=== PATIENT | female | born 1960 | race Caucasian/White ===

== ENCOUNTER → 2016-08-21 | Outpatient (CLI) | payer OTHER | END | disposition home or self-care (01) | LOC: CFH 09:53 | PROVIDERS: ATTEND Genetic Counselor, MS | DX: Z12.31 Encounter for screening mammogram for malignant neoplasm of breast (principal) | CPT/HCPCS: G0202 ==

== ENCOUNTER → 2017-02-10 | Outpatient (CLI) | payer OTHER ==
[~2017-02-10] MED LIST: CLOB15OI TP; FLUO15CR8 TP; GABA-826 PO; GABA300C10 PO; HYDR25TA11 PO; HYDR25TA6 PO; ZOLP5TAB6 PO
[2017-02-10 11:37] LABS: HEMATOCRIT 43.7 % (34.6-47.8); HEMOGLOBIN 15.1 g/dL (11.7-16.4); WHITE BLOOD COUNT 7.5 x10^3/uL (3.4-10)
[2017-02-10 11:43] LABS: BLOOD UREA NITROGEN 11 mg/dL (7-18)
[2017-02-10 11:46] LABS: ASPARTATE AMINO TRANSFERASE 18 U/L (15-37)
== END | disposition home or self-care (01) ==
LOC: STAR 10:14
PROVIDERS: ATTEND Orthopaedic Surgery Orthopaedic Surgery of the Spine
DX: Z01.818 Encounter for other preprocedural examination (principal); M54.5 Low back pain; Z98.1 Arthrodesis status
CPT/HCPCS: 36415; 71020; 80053; 81003; 85025; 93005

== ENCOUNTER 2017-02-19 05:37 | Inpatient (IN) | payer OTHER ==
[2017-02-10 10:41] VITALS: BP 130/86
[~2017-02-19] VITALS: Ht 162.6 cm; Wt 86.0 kg
[2017-02-19] MEDS ORDERED: LACTATED RINGERS 1,000 ML IV SCH (06:09)
[2017-02-19] MEDS ORDERED: MIDAZOLAM 1 MG/ML, 2ML ONE (06:21)
[2017-02-19] MEDS ORDERED: KETAMINE 10 MG/ML, 20ML ONE (06:21)
[2017-02-19] MEDS ORDERED: FENTANYL PF 100 MCG/2ML ONE ×2 (06:22→09:39)
[2017-02-19] MEDS ORDERED: LIDOCAINE-MPF 2% ,5ML ONE (06:24)
[2017-02-19] MEDS ORDERED: SUCCINYLCHOLINE 20 MG/ML, 10ML ONE (06:24)
[2017-02-19] MEDS ORDERED: PROPOFOL 10 MG/ML, 20ML ONE (06:24)
[2017-02-19] MEDS ORDERED: ROCURONIUM 10 MG/ML,10ML ONE ×2 (06:24)
[2017-02-19] MEDS ORDERED: PNEUMOCOCCAL 23 VACCINE IM-VACC ONE (06:30)
[2017-02-19] MEDS ORDERED: LIDOCAINE 1%, 2ML SQ PRN (06:30)
[2017-02-19] MEDS ORDERED: TRANEXAMIC ACID 100 MG/ML, 10ML ONE (06:32)
[2017-02-19] MEDS ORDERED: BUPIVACAINE/PF 0.5% ONE (06:32)
[2017-02-19] MEDS ORDERED: VANCOMYCIN 1,000 MG ONE (06:32)
[2017-02-19] MEDS ORDERED: BACITRACIN 50,000 UNIT ONE (06:32)
[2017-02-19] MEDS ORDERED: THROMBIN 5,000 UNIT VIAL TP ONE (06:32)
[2017-02-19] MEDS ORDERED: EPINEPHRINE 1 MG/ML, 1ML ONE (06:32)
[2017-02-19] MEDS ORDERED: REMIFENTANIL 2 MG ONE (06:50)
[2017-02-19] MEDS ORDERED: PROPOFOL 50 ML ONE (06:50)
[2017-02-19] MEDS ORDERED: DEXAMETHASONE 4 MG/ML, 1ML ONE (07:01)
[2017-02-19] MEDS ORDERED: CEFAZOLIN 1,000 MG ONE (07:01)
[2017-02-19] MEDS ORDERED: EPHEDRINE 50 MG/ML, 1ML ONE (07:01)
[2017-02-19] MEDS ORDERED: ONDANSETRON 2MG/ML, 2ML ONE (07:01)
[2017-02-19] MEDS ORDERED: PROPOFOL 100 ML ONE (07:36)
[2017-02-19] MEDS ORDERED: DIAZEPAM 5 MG/ML, 2ML IVPush PRN (09:00)
[2017-02-19] MEDS ORDERED: MEPERIDINE/PF 25MG/0.5ML IVPush PRN (09:00)
[2017-02-19] MEDS ORDERED: OXYcodone 5 MG/5 ML ORAL.SOL UDC PO PRN (09:00)
[2017-02-19] MEDS ORDERED: PROMETHAZINE 25 MG/ML, 1ML IV PRN (09:00)
[2017-02-19] MEDS ORDERED: ACETAMINOPHEN 325 MG TABLET PO PRN (09:00)
[2017-02-19] MEDS ORDERED: ALBUTEROL SULFATE 2.5 MG/3 ML NPPB PRN (09:00)
[2017-02-19] MEDS: HYDROmorphone 1 MG/ML, 1ML IV PRN ×4 (09:16→09:53)
[2017-02-19] MEDS ORDERED: HYDROmorphone 2 MG/ML, 1ML ONE ×2 (09:20→23:53)
[2017-02-19] MEDS ORDERED: OXYcodone 5 MG/5 ML ORAL.SOL UDC ONE (09:20)
[2017-02-19] MEDS ORDERED: ACETAMINOPHEN 650 MG/20.3 ML UDC ONE (09:20)
[2017-02-19] MEDS ORDERED: LABETALOL 5MG/ML, 20ML IVPush PRN (09:30)
[2017-02-19] MEDS ORDERED: ZOLPIDEM 5MG TABLET PO PRN (09:30)
[2017-02-19] MEDS: FENTANYL PF 100 MCG/2ML IV PRN ×2 (09:30→09:53)
[2017-02-19] MEDS ORDERED: PHARMACY MAY ADJ FOR RENAL FX MC PRN (09:30)
[2017-02-19] MEDS: LABETALOL 5MG/ML 40ML VIAL IVPush SCH ×2 (09:30→17:10)
[2017-02-19] MEDS ORDERED: ONDANSETRON 2MG/ML, 2ML IVPush PRN (09:30)
[2017-02-19] MEDS ORDERED: HYDROmorphone 1 MG/ML, 1ML IVPush PRN (09:30)
[2017-02-19] MEDS ORDERED: BISACODYL 10 MG SUPP PR PRN (09:30)
[2017-02-19] MEDS ORDERED: MAGNESIUM HYDROXIDE 8%, 30ML UDC PO PRN (09:30)
[2017-02-19] MEDS ORDERED: SENNA/DOCUSATE TABLET PO PRN (09:30)
[2017-02-19] MEDS ORDERED: TRANEXAMIC ACID 100 MG/ML, 10ML IV ONE (10:19)
[2017-02-19] MEDS ORDERED: DIPHENHYDRAMINE 50 MG/ML, 1ML ONE (10:30)
[2017-02-19] MEDS: DIPHENHYDRAMINE 50 MG/ML, 1ML IVPush PRN ×4 (10:32→21:53)
[2017-02-19] MEDS ORDERED: TRANEXAMIC ACID 1,000 MG in SODIUM CHLORIDE 0.9% 100 ML IV ONE (11:00)
[2017-02-19 12:16] VITALS: BP 125/70
[2017-02-19] MEDS: OXYcodone/APAP 5/325MG TABLET PO PRN ×3 (12:24→21:53)
[2017-02-19] MEDS: morphine SULFATE 10 MG/ML, 1ML IVPush PRN ×2 (13:32→16:12)
[2017-02-19] MEDS: CEFAZOLIN PMX 1GM/50ML 50 ML IVPB SCH (16:26)
[2017-02-19] MEDS: METHOCARBAMOL 750 MG TABLET PO PRN (19:22)
[2017-02-19 20:54] VITALS: BP 131/79
[2017-02-19 21:25] VITALS: BP 112/75
[2017-02-19] MEDS: FAMOTIDINE 20 MG TABLET PO SCH (21:56)
[2017-02-19 23:58] VITALS: BP 128/74
[2017-02-20] MEDS: CEFAZOLIN PMX 1GM/50ML 50 ML IVPB SCH (00:01)
[2017-02-20] MEDS: LABETALOL 5MG/ML 40ML VIAL IVPush SCH ×2 (02:08→09:08)
[2017-02-20] MEDS: DIPHENHYDRAMINE 50 MG/ML, 1ML IVPush PRN ×3 (02:09→09:59)
[2017-02-20] MEDS: OXYcodone/APAP 5/325MG TABLET PO PRN ×4 (02:09→14:11)
[2017-02-20 04:55] VITALS: BP 109/73
[2017-02-20] MEDS ORDERED: PNEUMOCOCCAL 23 VACCINE IM-VACC ONE (06:00)
[2017-02-20 06:25] VITALS: BP 118/73
[2017-02-20] MEDS: FAMOTIDINE 20 MG TABLET PO SCH (09:08)
[2017-02-20] MEDS: METHOCARBAMOL 750 MG TABLET PO PRN (11:34)
[2017-02-20] MEDS ORDERED: GABA300C10 PO (14:30)
== END 2017-02-20 15:03 | disposition home or self-care (01) | DRG 460 ==
LOC: ORIP 05:37 → 4NOR 11:10 → DCLOUNGE 02-20 14:51
PROVIDERS: ADMIT Orthopaedic Surgery Orthopaedic Surgery of the Spine; ATTEND Orthopaedic Surgery Orthopaedic Surgery of the Spine
PROC: 0ST40ZZ Resection of Lumbosacral Disc, Open Approach (ICD-10-PCS; 2017-02-19)
PROC: 4A11X4G Monitoring of Peripheral Nervous Electrical Activity, Intraoperative, External Approach (ICD-10-PCS; 2017-02-19)
PROC: 0SG30A0 Fusion of Lumbosacral Joint with Interbody Fusion Device, Anterior Approach, Anterior Column, Open Approach (ICD-10-PCS; principal; 2017-02-19 07:00)
DX: M51.37 Other intervertebral disc degeneration, lumbosacral region (principal); M48.07 Spinal stenosis, lumbosacral region; Z23 Encounter for immunization
CPT/HCPCS: 36415; 72100; 74000; 86850; 86900; 90732; C1713; J0171; J0690; J1100; J1170; J2250; J2405; J2704; J3010; J3360; J3370; J3490; C1762; J0330; J1200; J2270; J7120

== ENCOUNTER 2018-12-22 12:44 | Outpatient (CLI) | payer OTHER ==
[~2018-12-22 12:44] MED LIST changes: +HYDR-826 PO; -HYDR25TA11 PO
[2018-12-22] MEDS ORDERED: LIDOCAINE-MPF 1%, 5ML ONE (12:50)
== END 2018-12-22 23:59 | disposition home or self-care (01) ==
LOC: RAD 12:44
PROVIDERS: ATTEND Genetic Counselor, MS
DX: E04.1 Nontoxic single thyroid nodule (principal)
CPT/HCPCS: 10005; 88172; 88173

== ENCOUNTER → 2019-03-02 | Outpatient (CLI) | payer OTHER | END | disposition home or self-care (01) | LOC: CFH 13:31 | PROVIDERS: ATTEND Genetic Counselor, MS | DX: Z12.31 Encounter for screening mammogram for malignant neoplasm of breast (principal) | CPT/HCPCS: 77067 ==

== ENCOUNTER → 2020-04-05 | Outpatient (CLI) | payer OTHER ==
[~2020-04-05] MED LIST changes: +OMNIPAQUE 350 MG/ML, 100ML BOTTLE ONE
== END | disposition home or self-care (01) ==
LOC: CFH 14:29
PROVIDERS: ATTEND Genetic Counselor, MS
DX: Z12.2 Encounter for screening for malignant neoplasm of respiratory organs (principal); F17.210 Nicotine dependence, cigarettes, uncomplicated; R10.2 Pelvic and perineal pain; I70.0 Atherosclerosis of aorta; M51.34 Other intervertebral disc degeneration, thoracic region
CPT/HCPCS: 71271; 74177; Q9967